=== PATIENT | female | born 1955 | race American Indian/Alaskan Native ===

== ENCOUNTER → 2024-11-04 | Day surgery (SDC) | payer MEDICARE ==
[~2024-11-04] MED LIST: 50% Dextrose in Water 50 ML Syringe IVPUSH PRN; Diatrizoate Meglumine/Diatrizoate Sodium 37% 120 ML Bottle PO SCH; Gabapentin 300 MG Cap PO SCH; Glucagon,Human Recombinant 1 MG Vial IM PRN; Metoprolol Succinate 25 MG Tab.ER PO SCH; Nitroglycerin 0.4 MG Tab.SL SL PRN; Non-Formulary Medication 1 Each (Isosorbide Mononitrate [Isosorbide Mononitrate Er] 60 MG PO SCH; Ondansetron 4 MG Tab.DIS PO PRN; Propofol 200 MG/20 ML SDV ONE; ROSUVASTATIN CALCIUM 20 MG PO SCH; hydrALAZINE 20 MG/ML SDV IVPUSH PRN
[2024-11-04] MEDS: Sodium Chloride 0.9% 1,000 ML IV SCH (19:52)
[2024-11-04] MEDS: HYDROmorphone 0.5 MG/0.5 ML Syringe IVPUSH PRN (20:03)
[2024-11-04] MEDS: Metoprolol Tartrate 5 MG/5 ML SDV IVPUSH SCH (21:09)
[2024-11-04] MEDS: Insulin Lispro 100 Unit/ML 3 ML KwikPen SUBCUT SCH (21:12)
[2024-11-05] MEDS: Ondansetron 4 MG/2 ML SDV IVPUSH PRN (01:41)
[2024-11-05 08:49] LABS: BASOPHILS ABSOLUTE AUTO 0.05 K/uL (0.00-0.10); BASOPHILS PERCENT AUTO 0.3 % (0.1-1.3); EOSINOPHILS ABSOLUTE AUTO 0.13 K/uL (0.00-0.40); EOSINOPHILS PERCENT AUTO 0.9 % (0.0-5.4); HEMATOCRIT 36.6 % (34.3-46.0); HEMOGLOBIN 12.4 g/dL (11.2-15.5); IMMATURE GRAN ABSOLUTE AUTO 0.07 K/uL (0.00-0.23); IMMATURE GRAN PERCENT AUTO 0.5 % (0.0-0.7); LYMPHOCYTES ABSOLUTE AUTO 0.92 K/uL (0.8-3.3); LYMPHOCYTES PERCENT AUTO 6.3 % (11.4-47.7); MEAN CORPUSCULAR HEMOGLOBIN 30.8 pg (31.6-35.5); MEAN CORPUSCULAR HGB CONC 33.9 g/dL (31.6-35.5); MONOCYTES ABSOLUTE AUTO 0.71 K/uL (0.20-0.90); MONOCYTES PERCENT AUTO 4.9 % (3.3-12.6); NEUTROPHILS ABSOLUTE AUTO 12.61 K/uL (1.0-7.6); NEUTROPHILS PERCENT AUTO 87.1 % (40.0-78.1); PLATELET COUNT,PLT 216 K/uL (130-375); RED BLOOD CELL COUNT 4.02 M/uL (3.77-5.24); WHITE BLOOD CELL COUNT,WBC 14.5 K/uL (3.2-11.0)
[2024-11-05 09:04] LABS: ANION GAP 11.6 mmol/L (5.0-14.0); CALCIUM 8.8 mg/dL (8.5-10.1); CREATININE 0.9 mg/dL (0.6-1.0); EST CRCL DRUG DOSING (CG) 55.23 mL/min; POTASSIUM,K 4.1 mmol/L (3.6-5.2)
[2024-11-05] MEDS: Diatrizoate Meglumine/Diatrizoate Sodium 37% 120 ML Bottle PO SCH (09:22)
[2024-11-05] MEDS: Isosorbide Mononitrate 30 MG Tab.ER PO SCH (15:14)
[2024-11-05] MEDS: Losartan 50 MG Tab PO SCH (15:14)
[2024-11-05] MEDS: Metoprolol Succinate 25 MG Tab.ER PO SCH (15:14)
[2024-11-05] MEDS: Acetaminophen/HYDROcodone 108-2.5 MG/5 ML Soln 15 ML UD Cup PO PRN (16:14)
[2024-11-05] MEDS: Docusate Sodium 100 MG Cap PO SCH (20:08)
[2024-11-05] MEDS: Insulin Glargine,Human Rec. Analog 100 Units/ML 3 ML Pen SUBCUT SCH (21:38)
[2024-11-06] MEDS: Gabapentin 300 MG Cap PO SCH (08:37)
[2024-11-06] MEDS: Rivaroxaban 10 MG Tab PO SCH (08:37)
[2024-11-06] MEDS: Furosemide 20 MG Tab PO SCH (08:38)
[2024-11-06] MEDS: Aspirin 81 MG Tab.Chew PO SCH (08:39)
[2024-11-06] MEDS: Empagliflozin 10 MG Tab PO SCH (08:44)
[2024-11-06] MEDS: Magnesium Oxide 400 MG Tab PO SCH (08:45)
[2024-11-06] MEDS: Ezetimibe 10 MG Tab PO SCH (08:47)
== END ==
LOC: JP.SDS 06:19 → EDSTATUS 09:30 → JP.2SS 16:19 → UNDOADMOB 16:19 → JP.2SS 17:05 → UNDOADMOB 11-05 17:13 → JP.2SS 11-05 17:13 → UNDODISOB 11-06 17:00
PROVIDERS: ATTEND Surgery
DX: K31.1 Adult hypertrophic pyloric stenosis (principal); I26.99 Other pulmonary embolism without acute cor pulmonale; I10 Essential (primary) hypertension; E11.40 Type 2 diabetes mellitus with diabetic neuropathy, unspecified; E78.00 Pure hypercholesterolemia, unspecified; I25.10 Atherosclerotic heart disease of native coronary artery without angina pectoris; Z98.84 Bariatric surgery status; Z79.899 Other long term (current) drug therapy; Z88.2 Allergy status to sulfonamides; Z88.8 Allergy status to other drugs, medicaments and biological substances; Z88.5 Allergy status to narcotic agent
CPT/HCPCS: 00731-QZ; 36415; 74018; 74018-26; 74019; 74019-26; 80048; 82947; 85025; 99232; A9270-GY; C1726; J1815; J1815-GY; J2405; J2704; J3490; J7030; Q9963

== ENCOUNTER 2024-12-18 08:15 | Day surgery (SDC) | payer MEDICARE ==
[2024-12-18] MEDS ORDERED: fentaNYL 100 MCG/2 ML SDV ONE (08:56)
[2024-12-18] MEDS ORDERED: Propofol 200 MG/20 ML SDV ONE (08:56)
[2024-12-18] MEDS: Lactated Ringers 1,000 ML IV SCH (09:13)
== END 2024-12-18 11:08 | disposition home or self-care (01) ==
LOC: JP.SDS 08:15
PROVIDERS: ATTEND Surgery
DX: T18.2XXA Foreign body in stomach, initial encounter (principal); E11.9 Type 2 diabetes mellitus without complications; I11.0 Hypertensive heart disease with heart failure; I50.9 Heart failure, unspecified; Z98.84 Bariatric surgery status
CPT/HCPCS: 00731; 43245; 82947; C1726; J2704; J3010; J7120